=== PATIENT | female | born 1995 | race Caucasian/White ===

== ENCOUNTER 2017-08-07 10:16 | Observation (INO) | payer OTHER ==
[~2017-08-07] VITALS: Ht 165 cm; Wt 64.4 kg
[2017-08-07 10:39] VITALS: BP 121/64
[2017-08-07] MEDS ORDERED: PREN1TAB89 PO (10:41)
== END 2017-08-07 12:50 | disposition home or self-care (01) ==
LOC: 4S 10:16
PROVIDERS: ADMIT Obstetrics & Gynecology; ATTEND Obstetrics & Gynecology
DX: O23.593 Infection of other part of genital tract in pregnancy, third trimester (principal); Z3A.38 38 weeks gestation of pregnancy
CPT/HCPCS: 59025; G0378

== ENCOUNTER 2017-08-07 14:09 | Inpatient (IN) | payer OTHER ==
[~2017-08-07] VITALS: Ht 165 cm; Wt 64.4 kg
[~2017-08-07 14:09] MED LIST: PREN1TAB89 PO
[2017-08-07 14:21] VITALS: BP 119/71
[2017-08-07] MEDS ORDERED: OXYTOCIN 30 UNITS/LACT RINGERS 500 ML IV ONE (14:44)
[2017-08-07] MEDS ORDERED: RINGERS SOLUTION,LACTATED 1,000 ML IV PRN (14:44)
[2017-08-07] MEDS ORDERED: RINGERS SOLUTION,LACTATED 1,000 ML IV SCH (14:44)
[2017-08-07] MEDS ORDERED: LIDOCAINE HCL/PF 1% 30 ML VIAL INJ PRN (14:45)
[2017-08-07] MEDS ORDERED: METHYLERGONOVINE MALEATE 0.2 MG/ML VIAL IM PRN (14:45)
[2017-08-07] MEDS ORDERED: METOCLOPRAMIDE HCL 5 MG/ML 2 ML VIAL IVP PRN (14:45)
[2017-08-07] MEDS ORDERED: CITRIC ACID/SODIUM CITRATE 30 ML SOLUTION UDCUP PO PRN (14:45)
[2017-08-07] MEDS ORDERED: RINGERS SOLUTION,LACTATED 1,000 ML IV ONE ×2 (14:48→21:34)
[2017-08-07] MEDS: FentaNYL CITRATE-PF 100 MCG/2 ML VIAL IVP PRN ×2 (15:01→15:09)
[2017-08-07] MEDS ORDERED: INFLUENZA VIRUS VACCINE QVS 2017-18 (3YR+)/PF 60 MCG/0.5 ML SYRINGE IM ONE (15:15)
[2017-08-07 15:19] LABS: BASOPHILS # (AUTO) 0.01 K/uL (0.00-0.20); BASOPHILS % (AUTO) 0.1 % (0.0-2.0); EOSINOPHILS # (AUTO) 0.01 K/uL (0.00-0.70); EOSINOPHILS % (AUTO) 0.05 % (1.0-6.0); HEMOGLOBIN 11.7 g/dL (12.0-16.0); LYMPHOCYTES # (AUTO) 0.7 K/uL (1.0-4.8); LYMPHOCYTES % (AUTO) 6.9 % (22.0-44.0); MEAN CORPUSCULAR HEMOGLOBIN 31.5 pg (26.0-34.0); MEAN CORPUSCULAR HGB CONC 34.3 G/dL (31.0-37.0); MEAN CORPUSCULAR VOLUME 92 fL (80-100); MONOCYTES # (AUTO) 0.2 K/uL (0.1-1.0); MONOCYTES % (AUTO) 2.5 % (2.0-9.0); RED CELL DISTRIBUTION WIDTH 13.8 % (11.5-14.5)
[2017-08-07 15:24] LABS: NEUTROPHILS % (AUTO) 90.5 % (40.0-70.0)
[2017-08-07] MEDS ORDERED: FentaNYL/BUPIV 0.125%/NS/PF 200 ML ED ONE (15:41)
[2017-08-07] MEDS ORDERED: BUPIVACAINE HCL/PF 0.25% 30 ML VIAL ONE (15:42)
[2017-08-07] MEDS ORDERED: FentaNYL/BUPIV 0.125%/NS/PF 200 ML ED PRN (16:26)
[2017-08-07] MEDS ORDERED: ONDANSETRON HCL 4 MG/2 ML VIAL IVP PRN (16:30)
[2017-08-07] MEDS ORDERED: DiphenhydrAMINE HCL 50 MG/ML VIAL IVP PRN (16:30)
[2017-08-07] MEDS ORDERED: OXYTOCIN 30 UNITS/LACT RINGERS 500 ML IV PRN (17:07)
[2017-08-07] MEDS ORDERED: OXYGEN THERAPY IH SCH (20:00)
[2017-08-07] MEDS ORDERED: BENZOCAINE 20%/MENTHOL 56 GM SPRAY CANISTER TP PRN (21:45)
[2017-08-07] MEDS ORDERED: GLYCERIN/WITCH HAZEL LEAF 40 PADS JAR TP PRN (21:45)
[2017-08-07] MEDS ORDERED: OxyCODONE HCL/ACETAMINOPHEN 5-325 MG TABLET PO PRN ×2 (21:45)
[2017-08-07] MEDS ORDERED: MEASLES/MUMPS/RUBELLA VACCINE, LIVE 0.5 ML/VIAL SQ ONE (21:45)
[2017-08-07] MEDS ORDERED: LANOLIN 7 GM OINTMENT TP PRN (21:45)
[2017-08-07] MEDS: IBUPROFEN 600 MG TABLET PO PRN (22:17)
[2017-08-08] MEDS: MAGNESIUM HYDROXIDE SUSPENSION 30 ML UDCUP PO SCH ×2 (08:42→20:34)
[2017-08-08] MEDS: IBUPROFEN 600 MG TABLET PO PRN ×2 (08:43→20:34)
[2017-08-09] MEDS: IBUPROFEN 600 MG TABLET PO PRN (05:40)
[2017-08-09] MEDS: MAGNESIUM HYDROXIDE SUSPENSION 30 ML UDCUP PO SCH (09:00)
[2017-08-09] MEDS ORDERED: IBUP-2070 PO (13:20)
[2017-08-09] MEDS ORDERED: FERR-89 PO (13:21)
== END 2017-08-09 14:05 | disposition home or self-care (01) | DRG 775 ==
LOC: OBSVTOIN 14:09 → 4S 14:09
PROVIDERS: ADMIT Obstetrics & Gynecology; ATTEND Obstetrics & Gynecology
PROC: 10E0XZZ Delivery of Products of Conception, External Approach (ICD-10-PCS; principal; 2017-08-07)
PROC: 0UQGXZZ Repair Vagina, External Approach (ICD-10-PCS; 2017-08-07)
PROC: 10907ZC Drainage of Amniotic Fluid, Therapeutic from Products of Conception, Via Natural or Artificial Opening (ICD-10-PCS; 2017-08-07)
PROC: 3E0S3BZ Introduction of Anesthetic Agent into Epidural Space, Percutaneous Approach (ICD-10-PCS; 2017-08-07)
PROC: 00HU33Z Insertion of Infusion Device into Spinal Canal, Percutaneous Approach (ICD-10-PCS; 2017-08-07)
DX: O71.4 Obstetric high vaginal laceration alone (principal); Z37.0 Single live birth; Z3A.38 38 weeks gestation of pregnancy
CPT/HCPCS: 86850; 86900; 86901; J2590; J3010; J3490; J7120